=== PATIENT | male | born 1945 | race Caucasian/White ===

== ENCOUNTER 2023-06-07 10:20 | Outpatient (CLI) | payer OTHER | END 2023-06-07 10:21 | disposition home or self-care (01) | LOC: CSHCT 10:20 | PROVIDERS: ATTEND Internal Medicine | DX: J44.9 Chronic obstructive pulmonary disease, unspecified (principal); Z87.891 Personal history of nicotine dependence; R91.1 Solitary pulmonary nodule; E27.9 Disorder of adrenal gland, unspecified; N28.1 Cyst of kidney, acquired | CPT/HCPCS: 71271; 94060; 94664; 94726; 94729; 94760 ==

== ENCOUNTER 2023-09-08 08:29 | Outpatient (CLI) | payer OTHER | END 2023-09-08 08:30 | disposition home or self-care (01) | LOC: CSHCT 08:29 | PROVIDERS: ATTEND Family Medicine | DX: E27.8 Other specified disorders of adrenal gland (principal); D35.02 Benign neoplasm of left adrenal gland | CPT/HCPCS: 74178; 82565 ==

== ENCOUNTER 2024-01-30 09:35 | Outpatient (CLI) | payer OTHER, MEDICAID | END 2024-01-30 09:36 | disposition home or self-care (01) | LOC: CSHCT 09:35 | PROVIDERS: ATTEND Internal Medicine | DX: J44.9 Chronic obstructive pulmonary disease, unspecified (principal); R91.8 Other nonspecific abnormal finding of lung field; D35.02 Benign neoplasm of left adrenal gland | CPT/HCPCS: 71250 ==

== ENCOUNTER 2025-01-22 08:55 | Outpatient (CLI) | payer OTHER | END 2025-01-22 08:56 | disposition home or self-care (01) | LOC: CSHCT 08:55 | PROVIDERS: ATTEND Internal Medicine | DX: J44.9 Chronic obstructive pulmonary disease, unspecified (principal); R91.8 Other nonspecific abnormal finding of lung field | CPT/HCPCS: 71250 ==